=== PATIENT | female | born 1980 ===

== ENCOUNTER 2016-08-13 12:47 | Emergency (ER) | payer OTHER ==
[2016-08-13 13:17] VITALS: O2SAT 100
[2016-08-13 17:09] VITALS: BP 110/69; PULSE 73; RESP 16; TEMP 98.5
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
--- NOTE | 2016-08-16 10:08 | CARD ---
APPROVED REPORT EKG Measurement Heart [id number] <Conclusion> Normal sinus rhythm Normal ECG
== END 2016-08-13 18:25 | disposition home or self-care (01) ==
LOC: H.ER 12:47
DX: R07.9 Chest pain, unspecified (principal); R51 Headache; Y04.2XXA Assault by strike against or bumped into by another person, initial encounter

== ENCOUNTER 2018-02-15 09:11 | Emergency (ER) | payer OTHER ==
[2018-02-15] MEDS ORDERED: Naproxen 500 MG TAB PO STA (09:45)
--- NOTE | 2018-02-15 09:48 | ED PDOC ---
Lower Extremity Pain/Injury Time Seen by Provider: 02/15/18 09:27 Chief Complaint (Nursing): Lower Extremity Problem/Injury Additional Complaint(s): 37 y/o F with DM-II who presents with Left knee pain X 1 month, worse over the past 2 days. She states that she noticed mild knee pain when walking about a month ago. The pain has been intermittent. Over the past 2 days, the pain has worsened to the point of having to limp due to pain, states that pain is 8/10 when walking, 5/10 at rest. Denies trauma, fall, fever, chills, chronic knee pain. Took Naproxen 2 days with improvement in pain. Past Medical History Reviewed: Historical Data, Nursing Documentation, Vital Signs Vital Signs: Last Vital Signs Temp 98.5 F 02/15/18 09:15 Pulse 67 02/15/18 09:15 Resp 18 02/15/18 09:15 BP 115/71 02/15/18 09:15 Pulse Ox 99 02/15/18 09:15 - Medical History PMH: Diabetes, HTN Denies: Chronic Kidney Disease - Surgical History Surgical History: Appendectomy - Family History Family History: States: Unknown Family Hx - Social History Current smoker - smoking cessation education provided: No Ex-Smoker (has not smoked in the last 12 months): No Alcohol: Social Drugs: Denies - Home Medications Home Medications: Ambulatory Orders Medication Instructions Recorded GlipiZIDE [Glucotrol] 10 mg PO DAILY 07/19/14 Lisinopril 5 mg PO DAILY 07/19/14 MetFORMIN [glucoPHAGE] 1,000 mg PO BID 07/19/14 SITagliptin [Januvia] 50 mg PO DAILY 07/19/14 Dolutegravir Sodium [Tivicay] 50 mg PO DAILY #3 tab 07/04/17 Emtricitabine/Tenofovir (Tdf) 1 each PO DAILY #3 tablet 07/04/17 [Truvada 200 mg-300 mg Tablet] - Allergies Allergies/Adverse Reactions: Allergies Allergy/AdvReac Type Severity Reaction Status Date / Time No Known Allergies Allergy Verified 07/04/17 00:43 Review of Systems ROS Statement: Except As Marked, All Systems Reviewed And Found Negative Musculoskeletal: Positive for: Other (knee pain) Neurological: Negative for: Weakness, Numbness Physical Exam - Reviewed Nursing Documentation Reviewed: Yes Vital Signs Reviewed: Yes - Physical Exam Appears: Positive for: Well Head Exam: Positive for: ATRAUMATIC Skin: Positive for: Normal Color Pulses-Dorsalis Pedis (L): 2+ Extremity: Positive for: Normal ROM (mild pain on flexion of Left knee, normal extension at Left knee, normal ROM at ankle and hip. ), Tenderness (tenderness on palpation of medial and lateral Left knee), Swelling (mild edema of Left knee), Other. Negative for: Calf Tenderness Neurologic/Psych: Positive for: Alert, Oriented - ECG O2 Sat by Pulse Oximetry: 99 Medical Decision Making Medical Decision Making: LEft knee x-ray URine Preg Naproxen 500mg PO x 1 Knee X-ray: unremarkable for dislocation or fracture as per my read. VIVIAN bandage to Left knee Recommend continued use of NSAIDS for pain. F/u with Ortho for further evaluati on of knee pain. Disposition - Clinical Impression Clinical Impression: Knee pain - Patient ED Disposition Is Patient to be Admitted: No Counseled Patient/Family Regarding: Studies Performed, Diagnosis, Need For Followup, Rx Given - Disposition Referrals: [facility] [place] [Outside] Disposition: Routine/Home Disposition Time: 11:45 Condition: STABLE Additional Instructions: Can use Naproxen/Ibuprofen for pain as needed. Knee brace for comfort. F/u with orthopedic clinic as may need MRI to evaluate ligaments. Instructions: Knee Pain (DC) Forms: [employer] ([place]), [facility] ED School/Work Excuse Print Language: TAMAZIGHT
[2018-02-15] MEDS ORDERED: Naproxen 500 MG TAB PO ONE (09:50)
[2018-02-15 11:48] VITALS: BP 101/57; PULSE 77; RESP 16; TEMP 98.3
--- NOTE | 2018-02-15 15:12 | RAD ---
Date of service: 02/15/2018 PROCEDURE: Left Knee Radiographs. HISTORY: Pain. COMPARISON: None. FINDINGS: BONES: No acute fracture or destructive bony lesion identified. A small cyst seen related to the inferior patella abutting the articular cortex. Given the lack of degenerative patellofemoral compartment changes, this is unlikely represent a subchondral cyst. JOINTS: No subluxation or dislocation. Borderline medial femorotibial joint compartment may indicate early degenerative joint disease. JOINT EFFUSION: None. OTHER FINDINGS: None. IMPRESSION: No acute fracture or dislocation left knee. Early degenerative joint changes are suspected at the medial femorotibial joint compartment however. Nonaggressive appearing cyst inferior patella abutting apparent articular margins. Consider follow-up elective MRI, particularly if there is patellar pain.
[2018-02-15 21:02] VITALS: O2SAT 99
== END 2018-02-15 11:45 | disposition home or self-care (01) ==
LOC: H.ER 09:11
DX: M25.562 Pain in left knee (principal); E11.9 Type 2 diabetes mellitus without complications; Z79.84 Long term (current) use of oral hypoglycemic drugs; I10 Essential (primary) hypertension